=== PATIENT | female | born 1995 | race Two or more races ===

== ENCOUNTER 2020-09-16 14:29 | Outpatient (CLI) | payer OTHER | END 2020-09-16 14:40 | disposition home or self-care (01) | LOC: RAD 14:29 | PROVIDERS: ATTEND General Practice | DX: R05 Cough (principal) ==

== ENCOUNTER 2024-10-21 12:19 | Outpatient (CLI) | payer OTHER | END 2024-10-21 12:21 | disposition home or self-care (01) | LOC: RAD 12:19 | DX: M99.03 Segmental and somatic dysfunction of lumbar region (principal); M99.04 Segmental and somatic dysfunction of sacral region; M99.05 Segmental and somatic dysfunction of pelvic region ==